=== PATIENT | female | born 1945 | race Caucasian/White ===

== ENCOUNTER 2025-04-14 09:50 | Day surgery (SDC) | payer MEDICARE ==
[~2025-04-14 09:50] MED LIST: Dexamethasone/Neomycin/Polymyxin B Ophth Oint 3.5 GM Tube ONE; Lidocaine 1% 2 ML ONE; Phenyleprhine/Ketorolac 4 ML Vial ONE; Povidone-Iodine 5% Sterile Ophth Soln 30 ML Bottle ONE
[2025-04-14] MEDS ORDERED: fentaNYL 100 MCG/2 ML SDV ONE (10:03)
[2025-04-14] MEDS ORDERED: Midazolam 1 MG/ML 2 ML SDV ONE (10:03)
[2025-04-14] MEDS: Cyclopentolate 1% Opth Soln 2 ML Bottle EYELF SCH (10:03)
[2025-04-14] MEDS: Moxifloxacin 0.5% Ophth Soln 3 ML Bottle EYELF ONE ×2 (10:31→11:10)
[2025-04-14] MEDS: Povidone-Iodine 5% Sterile Ophth Soln 30 ML Bottle EYELF ONE (11:10)
[2025-04-14] MEDS: Phenyleprhine/Ketorolac 4 ML Vial IOCULAR ONE (11:10)
[2025-04-14] MEDS: Balanced Salt Solution Ophth Irrig 500 ML Bottle IOCULAR ONE (11:10)
[2025-04-14] MEDS: Chondroitin Sulfate/Hyaluronate Sodium Ophth Inj 0.5 ML Syringe IOCULAR ONE (11:11)
[2025-04-14] MEDS: Lidocaine 1% PF 2 ML SDV INFILT ONE (11:11)
[2025-04-14] MEDS: Dexamethasone/Neomycin/Polymyxin B Ophth Oint 3.5 GM Tube EYELF ONE (11:12)
[2025-04-14] MEDS: acetaZOLAMIDE 500 MG Cap.ER PO ONE (11:30)
== END 2025-04-14 11:53 | disposition home or self-care (01) ==
LOC: VM.SDS 09:50
PROVIDERS: ATTEND Ophthalmology
DX: H25.813 Combined forms of age-related cataract, bilateral (principal); H43.813 Vitreous degeneration, bilateral; H43.393 Other vitreous opacities, bilateral; I10 Essential (primary) hypertension; E78.00 Pure hypercholesterolemia, unspecified; Z88.8 Allergy status to other drugs, medicaments and biological substances; Z79.899 Other long term (current) drug therapy
CPT/HCPCS: 00142; 93005; 99100; A9270-GY; J0690; J1097; J2003; J2250; J3010; J3490; V2632

== ENCOUNTER 2025-05-19 07:39 | Day surgery (SDC) | payer MEDICARE ==
[~2025-05-19 07:39] MED LIST changes: +Sodium Chloride 0.9% 10 ML Syringe FLUSH PRN
[2025-05-19] MEDS: Cyclopentolate 1% Opth Soln 2 ML Bottle EYERT SCH (07:45)
[2025-05-19] MEDS: Moxifloxacin 0.5% Ophth Soln 3 ML Bottle EYERT ONE ×2 (08:05→09:26)
[2025-05-19] MEDS ORDERED: fentaNYL 100 MCG/2 ML SDV ONE (08:27)
[2025-05-19] MEDS ORDERED: Midazolam 1 MG/ML 2 ML SDV ONE (08:27)
[2025-05-19] MEDS: Balanced Salt Solution Ophth Irrig 500 ML Bottle IOCULAR ONE (09:26)
[2025-05-19] MEDS: Povidone-Iodine 5% Sterile Ophth Soln 30 ML Bottle EYERT ONE (09:26)
[2025-05-19] MEDS: Chondroitin Sulfate/Hyaluronate Sodium Ophth Inj 0.5 ML Syringe IOCULAR ONE (09:27)
[2025-05-19] MEDS: Phenyleprhine/Ketorolac 4 ML Vial IOCULAR ONE (09:27)
[2025-05-19] MEDS: Lidocaine 1% PF 2 ML SDV INFILT ONE (09:27)
[2025-05-19] MEDS: Dexamethasone/Neomycin/Polymyxin B Ophth Oint 3.5 GM Tube EYERT ONE (09:28)
[2025-05-19] MEDS: acetaZOLAMIDE 500 MG Cap.ER PO ONE (09:48)
== END 2025-05-19 10:03 | disposition home or self-care (01) ==
LOC: VM.SDS 07:39
PROVIDERS: ATTEND Ophthalmology
DX: H25.811 Combined forms of age-related cataract, right eye (principal); I10 Essential (primary) hypertension; E78.00 Pure hypercholesterolemia, unspecified; F41.9 Anxiety disorder, unspecified; Z88.8 Allergy status to other drugs, medicaments and biological substances; Z79.899 Other long term (current) drug therapy
CPT/HCPCS: 66984; A9270; J0690; J1097; J2003; J2250; J3010; V2632; 00142; 99100; J3490